=== PATIENT | female | born 1980 | race Two or more races ===

== ENCOUNTER 2017-03-15 17:21 | Emergency (ER) | payer MEDICAID ==
[2017-03-15] MEDS ORDERED: IBUPROFEN 800 MG TABLET PO ONE (19:53)
--- NOTE | 2017-03-15 19:59 | ER Document Report ---
HPI - HPI Patient complains to provider of: foot and ankle pain Onset: Last week Onset/Duration: Persistent, Worse Quality of pain: Achy Severity: Severe Pain Level: 5 Context: Patient presents to the ED with c/o right foot pain that radiates up her leg. Reports she jumped off a truck last week and has noticed pain. Reports she wears flat shoes. Pt reports increased pain in the AM. Denies pmh of injury to foot. No other c/o such as f/n/v/d. Associated Symptoms: None Exacerbated by: Standing Relieved by: Denies Similar symptoms previously: No Recently seen / treated by doctor: No - CONSTITUTIONAL Constitutional: DENIES: Fever, Chills - EENT EENT: DENIES: Sore Throat, Ear Pain, Nasal Drainage-Clear, Nasal Drainage- Purulent, Congestion, Eye problems - NEURO Neurology: DENIES: Headache, Weakness, Vision blurred, Dizzinesss / Vertigo - CARDIOVASCULAR Cardiovascular: DENIES: Chest pain - RESPIRATORY Respiratory: DENIES: Trouble Breathing, Coughing - GASTROINTESTINAL Gastrointestinal: DENIES: Abdominal Pain, Nausea, Patient vomiting, Diarrhea, Constipation, Black / Bloody Stools - URINARY Urinary: DENIES: Dysuria, Urgency, Frequency - REPRODUCTIVE Reproductive: DENIES: :, Postmenopausal, Abnormal bleeding / discharge - MUSCULOSKELETAL Musculoskeletal: REPORTS: Extremity pain, Swelling. 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 Pt. has no obvious deformity and no bruising present, pulses and sensation in tact. Pt. ambulating in ED without difficulty. Past Medical History - General Information source: Patient Last Menstrual Period: now - Social History Smoking Status: Current Every Day Smoker Cigarette use (# per day): Yes - 1 ppd Chew tobacco use (# tins/day): No Frequency of alcohol use: Occasional Drug Abuse: None Lives with: Family Family History: Reviewed & Not Pertinent Patient has suicidal ideation: No Patient has homicidal ideation: No - Past Medical History Cardiac Medical History: Denies: Hx Coronary Artery Disease, Hx Heart Attack, Hx Hypertension Pulmonary Medical History: Denies: Hx Asthma, Hx Bronchitis, Hx COPD, Hx Pneumonia Neurological Medical History: Denies: Hx Cerebrovascular Accident, Hx Seizures Renal/ Medical History: Denies: Hx Peritoneal Dialysis Musculoskeltal Medical History: Denies Hx Arthritis Past Surgical History: Reports: Hx Section - x2, Hx Gynecologic Surgery - spring in fallopian tube, right - Immunizations Hx Diphtheria, Pertussis, Tetanus Vaccination: No Vertical Provider Document - CONSTITUTIONAL Agree With Documented VS: Yes Exam Limitations: No Limitations General Appearance: WD/WN, No Apparent Distress - nontoxic looking - INFECTION CONTROL TRAVEL OUTSIDE OF THE [place] IN LAST 30 DAYS: No - HEENT HEENT: Atraumatic, Normocephalic - NECK Neck: Supple - RESPIRATORY Respiratory: No Respiratory Distress O2 Sat by Pulse Oximetry: 98 - CARDIOVASCULAR Cardiovascular: Regular Rate - MUSCULOSKELETAL/EXTREMETIES Musculoskeletal/Extremeties: MAEW, FROM, Tender - right plantar foot ttp, no obvious deformity, no erythema, no obvious swelling, good pedal pulse brisk cap refill No swelling erythema or warmth to calf - NEURO Level of Consciousness: Awake, Alert, Appropriate Motor/Sensory: No Motor Deficit - DERM Integumentary: Warm, Dry Adult Front & Back Diagram: 1 - pain to plantar foot, radiates up her right leg Course - Re-evaluation Re-evalutation: 03/16/17 Patient instructed on negative x-rays. Suspect plantar fasciitis. Discussed exercises which is wearing her shoes. Also discussed Motrin ice packs. Patient was instructed to follow-up with her dry sand molder for continued pain. She verbalized understanding. - Vital Signs Vital signs: Temp Pulse Resp BP Pulse Ox 97.8 F 73 20 107/58 L 98 03/15/17 17:50 03/15/17 17:50 03/15/17 17:50 03/15/17 17:50 03/15/17 17:50 - Diagnostic Test Radiology reviewed: Image reviewed, Reports reviewed - Diagnostic report text EXAM DESCRIPTION: ANKLE RIGHT COMPLETE COMPLETED DATE/TIME: 8:17 pm REASON FOR STUDY: pain foot/ankle COMPARISON: None. NUMBER OF VIEWS: Three views. TECHNIQUE: AP, lateral, and oblique without weight bearing radiographic images acquired of the right ankle. LIMITATIONS: None. FINDINGS: MINERALIZATION: Normal. BONES: No acute fracture or dislocation. No worrisome bone lesions. Normal alignment. No significant arthritic changes. JOINTS AND SOFT TISSUES: No swelling. No calcifications. No foreign bodies. OTHER: No other significant finding. IMPRESSION: NEGATIVE STUDY OF THE RIGHT ANKLE. NO ACUTE POST-TRAUMATIC CHANGES. NO EXPLANATION FOR PAIN Diagnostic report text EXAM DESCRIPTION: FOOT RIGHT COMPLETE COMPLETED DATE/TIME: 03/15/2017 8:17 pm REASON FOR STUDY: pain foot/ankle COMPARISON: None. NUMBER OF VIEWS: Three views. TECHNIQUE: AP, lateral and oblique without weight bearing radiographic images acquired of the right foot. LIMITATIONS: None. FINDINGS: MINERALIZATION: Normal. BONES: No acute fracture or dislocation. No worrisome bone lesions. No significant osteophytes. JOINTS: No erosions. No zack-articular osteopenia. No chondrocalcinosis. SOFT TISSUES: No swelling. No calcifications. OTHER: No other significant finding. IMPRESSION: NEGATIVE STUDY OF THE RIGHT FOOT. NO ACUTE POST- TRAUMATIC CHANGES. NO EXPLANATION FOR PAIN Discharge - Discharge Clinical Impression: Right foot pain, Plantar fasciitis of right foot Condition: Stable Disposition: HOME, SELF-CARE Instructions: Ibuprofen (General) ([facility]), Ice Packs ([facility]), Plantar Fasciitis or Heel Spur ([facility]), Exercises for the Foot Muscles ([facility]) Additional Instructions: *You have been evaluated for right foot pain, plantar fasciitis *plantar wedges, foot exercises *Rest/Ice/Elevate *Follow up with a dry sand molder within one week *Take medication as prescribed *Return to ED for worsening condition, changes, needs Prescriptions: Ibuprofen [Motrin 800 mg Tablet] 800 mg PO TID #30 tablet Forms: Return to Work Referrals: [facility] [Provider Group] - Follow up in 1 week
--- NOTE | 2017-03-15 20:33 | RADIOLOGY REPORT (SQ) ---
EXAM DESCRIPTION: FOOT RIGHT COMPLETE COMPLETED DATE/TIME: 03/15/2017 8:17 pm REASON FOR STUDY: pain foot/ankle COMPARISON: None. NUMBER OF VIEWS: Three views. TECHNIQUE: AP, lateral and oblique without weight bearing radiographic images acquired of the right foot. LIMITATIONS: None. FINDINGS: MINERALIZATION: Normal. BONES: No acute fracture or dislocation. No worrisome bone lesions. No significant osteophytes. JOINTS: No erosions. No zack-articular osteopenia. No chondrocalcinosis. SOFT TISSUES: No swelling. No calcifications. OTHER: No other significant finding. IMPRESSION: NEGATIVE STUDY OF THE RIGHT FOOT. NO ACUTE POST-TRAUMATIC CHANGES. NO EXPLANATION FOR PA IN. TECHNICAL DOCUMENTATION: JOB ID: [id number] [employer]- All Rights Reserved
--- NOTE | 2017-03-15 20:34 | RADIOLOGY REPORT (SQ) ---
EXAM DESCRIPTION: ANKLE RIGHT COMPLETE COMPLETED DATE/TIME: 03/15/2017 8:17 pm REASON FOR STUDY: pain foot/ankle COMPARISON: None. NUMBER OF VIEWS: Three views. TECHNIQUE: AP, lateral, and oblique without weight bearing radiographic images acquired of the right ankle. LIMITATIONS: None. FINDINGS: MINERALIZATION: Normal. BONES: No acute fracture or dislocation. No worrisome bone lesions. Normal alignment. No significant arthritic changes. JOINTS AND SOFT TISSUES: No swelling. No calcifications. No foreign bodies. OTHER: No other significant finding. IMPRESSION: NEGATIVE STUDY OF THE RIGHT ANKLE. NO ACUTE POST-TRAUMATIC CHANGES. NO EXPLANATION FOR P AIN. TECHNICAL DOCUMENTATION: JOB ID: [id number] [employer]- All Rights Reserved
[2017-03-15 21:10] VITALS: BP 114/73
== END 2017-03-15 21:10 | disposition home or self-care (01) ==
LOC: ER 17:21
DX: M72.2 Plantar fascial fibromatosis (principal); M79.671 Pain in right foot; M25.471 Effusion, right ankle; F17.210 Nicotine dependence, cigarettes, uncomplicated
CPT/HCPCS: 99283; 73610; 73630; J3490

== ENCOUNTER 2017-05-27 13:40 | Emergency (ER) | payer OTHER ==
[2017-05-27] MEDS ORDERED: IBUPROFEN 600 MG TABLET PO ONE (15:10)
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
[2017-05-27 15:18] VITALS: BP 120/72
== END 2017-05-27 15:16 | disposition home or self-care (01) ==
LOC: ER 13:40
DX: S16.1XXA Strain of muscle, fascia and tendon at neck level, initial encounter (principal); M54.2 Cervicalgia; M54.5 Low back pain; R51 Headache; V87.7XXA Person injured in collision between other specified motor vehicles (traffic), initial encounter; F17.210 Nicotine dependence, cigarettes, uncomplicated
CPT/HCPCS: 99283